=== PATIENT | female | born 1970 | race Caucasian/White ===

== ENCOUNTER 2017-02-28 21:01 | Emergency (ER) | payer OTHER ==
[2017-02-28 21:08] VITALS: BP 123/81
--- NOTE | 2017-02-28 22:20 | ED Physician Documentation ---
History of Present Illness - Stated complaint Stated Complaint: CAN'T SWALLOW/STIFF NECK - Chief complaint Chief Complaint: General - History obtained from History obtained from: Patient, Family - History of Present Illness Timing: Today Pain level max: 5 Pain level now: 5 Improved by: nothing Worsened by: swallowing, movement of neck - Additonal information Additional information: atraumatic neck pain, odynophagia x 1-2 days Review of Systems Constitutional: reports: Reviewed and negative Ears: denies: Ear pain Nose: reports: Reviewed and negative Throat: reports: Sore throat Skin: denies: Rash Musculoskeletal: reports: Neck pain PD PAST MEDICAL HISTORY - Past Medical History Past Medical History: Yes Endocrine/Autoimmune: HyPOthyroidism Psych: Depression, Anxiety, Bipolar disorder, Post traumatic stress disorder Musculoskeletal: Chronic back pain - Past Surgical History 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 - Present Medications Home Medications: Ambulatory Orders Medication Instructions Recorded Confirmed Bupropion HCl [Wellbutrin] 100 mg PO DAILY 07/30/14 08/30/16 Levothyroxine Sodium [Synthroid] 125 mcg PO DAILY 07/30/14 08/30/16 [place] Carbonate 600 mg PO DAILY 07/30/14 08/30/16 PARoxetine [Paxil] 10 mg PO DAILY 07/30/14 08/30/16 Zolpidem [Ambien] 10 mg PO HS #7 tablet 07/30/14 08/30/16 Cyclobenzaprine [Flexeril] 10 mg PO TID PRN #20 tablet 08/30/16 HYDROcod/ACETAM 5/325 [[place] 5/325] 1 - 2 ea PO Q6H PRN #15 tablet 08/30/16 Lamotrigine [Lamictal Xr] 1 tab PO DAILY 08/30/16 08/30/16 Dexamethasone [Decadron] 4 mg PO DAILY #5 tablet 10/03/16 Methocarbamol [Robaxin] 500 mg PO Q6H PRN #25 tablet 10/03/16 Naproxen 375 mg PO BID #20 tablet 10/03/16 Oxycodone HCl/Acetaminophen 1 each PO Q6H PRN #20 tablet 10/03/16 [Percocet 5-325 mg Tablet] Tramadol HCl 50 mg PO Q6H PRN #25 tablet 10/03/16 Zolpidem [Ambien] 10 mg PO HS PRN #7 tablet 10/03/16 - Allergies Allergies/Adverse Reactions: Allergies Allergy/AdvReac Type Severity Reaction Status Date / Time No Known Drug Allergies Allergy Verified 02/28/17 21:08 - Social History Does the pt smoke?: No Smoking Status: Never smoker Does the pt drink ETOH?: Yes Does the pt have substance abuse?: No - Immunizations Immunizations are current?: Yes - POLST Patient has POLST: No PD ED PE NORMAL - Vitals Vital signs reviewed: Yes - General General: Alert and oriented X 3, No acute distress, Well developed/nourished - HEENT HEENT: PERRL, EOMI, Moist mucous membranes, Pharynx benign (punctate exudate, solitary lesion of exudate) - Neck Neck: Supple, no meningeal sign, No bony TTP, No adenopathy, Thyroid normal - Derm Derm: Normal color, Warm and dry, No rash Results - Vitals Vitals: Oxygen O2 Source Room air - Labs Labs: Microbiology 02/28/17 22:45 Group A Strep Throat Culture - Final Throat Laboratory Tests 02/28/17 22:45 Group A Strep Rapid Negative PD MEDICAL DECISION MAKING - ED course Complexity details: reviewed results, re-evaluated patient, considered differential, d/w patient, d/w family Departure - Departure Disposition: 01 Home, Self Care Clinical Impression: Neck pain, Sore throat Condition: Good Instructions: ED Neck Pain No Trauma Follow-Up: [facility] [Provider Group] [facility] [Provider Group] Discharge Date/Time: 02/28/17 23:17
[2017-02-28 22:58] LABS: RAPID STREP SCREEN REAGENT QC YELLOW (YELLOW)
== END 2017-02-28 23:17 | disposition home or self-care (01) ==
LOC: ED 21:01
DX: J02.9 Acute pharyngitis, unspecified (principal); M54.2 Cervicalgia; E03.9 Hypothyroidism, unspecified
CPT/HCPCS: 87070; 87430; 99283

== ENCOUNTER 2017-09-15 20:54 | Emergency (ER) | payer OTHER ==
--- NOTE | 2017-09-15 21:25 | ED Physician Documentation ---
PD HPI LOWER EXT INJURY - Stated complaint Stated Complaint: R CALF PX/SWELLING - Chief complaint Chief Complaint: Ext Problem - History obtained from History obtained from: Patient - History of Present Illness PD HPI LOW EXT INJURY LOCATION: Right, Calf Type of injury: No: Fall, Twist Timing - onset: How many days ago (2) Timing - duration: Days (2) Timing - details: Gradual onset, Still present (noted onset of medial right calf pain and swelling without noted injury over past 2 days. Has been sitting at desk a lot for work, and also had plane flight from [place] couple weeks ago.) Worsened by: Palpating, Other (walking) Associated symptoms: Swelling (medial mid calf right leg). No: Weakness, Numbness Contributing factors: No: Anticoagulated, Prior ortho surgery Similar symptoms before: Has not had sx before Recently seen: Not recently seen Review of Systems Constitutional: denies: Fever, Chills Cardiac: denies: Chest pain / pressure, Palpitations Respiratory: reports: Dyspnea (mild today after reading about possible blood clots and can go to the lungs; did not have dyspnea earlier.). 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 - Present Medications Home Medications: Ambulatory Orders Medication Instructions Recorded Confirmed Bupropion HCl [Wellbutrin] 100 mg PO DAILY 07/30/14 08/03/17 Levothyroxine Sodium [Synthroid] 125 mcg PO DAILY 07/30/14 08/03/17 [place] Carbonate 600 mg PO DAILY 07/30/14 08/03/17 PARoxetine [Paxil] 10 mg PO DAILY 07/30/14 08/03/17 Zolpidem [Ambien] 10 mg PO HS #7 tablet 07/30/14 08/03/17 lamoTRIgine [Lamictal Xr] 1 tab PO DAILY 08/30/16 08/03/17 Calcium Carbonate [Tums (Calcium 1,000 mg PO DAILY 05/25/17 08/03/17 Carbonate 500mg)] Multivitamin [Multiple Vitamins] 1 tab PO DAILY 05/25/17 08/03/17 Dexamethasone [Decadron] 4 mg PO DAILY #5 tablet 09/15/17 - Allergies Allergies/Adverse Reactions: Allergies Allergy/AdvReac Type Severity Reaction Status Date / Time No Known Drug Allergies Allergy Verified 09/15/17 21:00 - Social History Does the pt smoke?: No Smoking Status: Never smoker Does the pt drink ETOH?: Yes Does the pt have substance abuse?: No - Immunizations Immunizations are current?: Yes - POLST Patient has POLST: No PD ED PE NORMAL - Vitals Vital signs reviewed: Yes - General General: Alert and oriented X 3, No acute distress, Well developed/nourished - Cardiac Cardiac: RRR, No murmur - Respiratory Respiratory: Clear bilaterally - Back Back: No CVA TTP, No spinal TTP - Derm Derm: Normal color, Other (psoriatic patches on legs, knees, behind ears, chest , neck without signs of infection, c/w nummular psoriasis. ) - Extremities Extremities: Other (right medial mid calf with some nonfocal swelling and tenderness. No redness aside from some psoriatic patches. Normal color and cap refill in ankle/toes. ) - Neuro Neuro: Alert and oriented X 3, No motor deficit, No sensory deficit, Normal speech Results - Vitals Vitals: Vital Signs - 24 hr 09/15/17 09/15/17 20:58 22:47 Temperature 36.3 C L 36.4 C L Heart Rate 72 67 Respiratory 16 14 Rate Blood Pressure 130/85 H 132/87 H O2 Saturation 100 98 Oxygen O2 Source Room air - Rads (name of study) duplex right leg Radiology: Prelim report reviewed (no DVT; incidental effusion/fluid lateral knee popliteal area (does not seem related to medial lower calf tenderness).) Departure - Departure Disposition: 01 Home, Self Care Clinical Impression: Right calf pain, Muscle strain Clinical Impression: (Ruled Out): DVT (deep venous thrombosis) Condition: Stable Record reviewed to determine appropriate education?: Yes Instructions: ED Strain Muscle Ext Follow-Up: [facility] [Primary Care Provider] - Prescriptions: Dexamethasone [Decadron] 4 mg PO DAILY #5 tablet Comments: No signs of DVT on ultrasound today. This is highly accurate for DVT, approaching 98%. That said, if you were to have increasing pain and swelling of the calf, the ultrasound can be repeated in a week or so to see if there is then evidence for one developing. For now, presume muscle strain/inflammation. Some activity with the leg (walking easily) is good. Elevate it often otherwise. Ibuprofen or Naproxen 2-3 times daily for 5-7 days. Recheck if not improving over the next few days to a week. The ultrasound showed a small cyst- like fluid pocket near the outside of the knee, so I think is unrelated and relatively common. For your psoriasis, you could use daily dexamethasone steroid for 3-5 days to see if that decreases it. This might help with the calf pain as well though when to be required for getting better. Discharge Date/Time: 09/15/17 22:47
--- NOTE | 2017-09-15 22:30 | Ultrasound Preliminary Report ---
Exam: US DUPLEX EXT VEINS RIGHT IMPRESSION: 1. No evidence for deep venous thrombosis. 2. There appears to be a right lateral knee joint effusion measuring 2.9 x 0.4 cm. [facility] SITE ID: [id number]
[2017-09-15] MEDS ORDERED: DEXAMETHASONE 10 MG/ML VIAL PO STA (22:32)
--- NOTE | 2017-09-15 22:33 | Ultrasound Report ---
EXAM: RIGHT LOWER EXTREMITY VENOUS ULTRASOUND EXAM DATE: 09/15/2017 10:26 PM. CLINICAL HISTORY: Right calf pain and swelling; recent plane flight. COMPARISON: None. TECHNIQUE: Real-time sonographic vascular imaging was performed by the rn practitioner through the lower extremity utilizing both color-flow and Doppler spectral analysis. Multiple industrial relations representative static kavya ges were saved for review. FINDINGS: Common Femoral Vein (CFV): Normal. CFV-GSV Junction: Normal. Profunda Femoral Vein (PFV): Normal. Femoral Vein (FV) Prox: Normal. Femoral Vein (FV) Mid: Normal. Femoral Vein (FV) Dist: Normal. Popliteal Vein: Normal. Posterior Tibial Veins: Normal. Peroneal Veins: Normal. Other: There appears to be a right lateral knee joint effusion measuring 2.9 x 0.4 cm. IMPRESSION: 1. No evidence for deep venous thrombosis. 2. There appears to be a right lateral knee joint effusion measuring 2.9 x 0.4 cm. [facility] Referring Provider Line: [phone] SITE ID: [id number]
[2017-09-15 22:47] VITALS: BP 132/87
== END 2017-09-15 22:47 | disposition home or self-care (01) ==
LOC: ED 20:54
DX: S86.911A Strain of unspecified muscle(s) and tendon(s) at lower leg level, right leg, initial encounter (principal); W18.30XA Fall on same level, unspecified, initial encounter; X50.9XXA Other and unspecified overexertion or strenuous movements or postures, initial encounter; E03.9 Hypothyroidism, unspecified
CPT/HCPCS: 99283

== ENCOUNTER 2020-11-30 10:42 | Outpatient (CLI) | payer OTHER ==
[2020-11-30 11:36] LABS: THYROID STIMULATING HORMONE 2.64 uIU/mL (0.34-5.60)
[2020-11-30 12:04] LABS: FOLLICLE STIMULATING HORMONE 10.27 mIU/mL
== END 2020-11-30 10:43 | disposition home or self-care (01) ==
LOC: LAB 10:42
PROVIDERS: ATTEND Obstetrics & Gynecology
DX: N95.9 Unspecified menopausal and perimenopausal disorder (principal); R53.83 Other fatigue
CPT/HCPCS: 82670; 83001; 84443

== ENCOUNTER 2022-12-06 08:00 | Outpatient (CLI) | payer OTHER | END 2022-12-06 23:59 | disposition home or self-care (01) | LOC: LAB 08:00 | PROVIDERS: ATTEND Physician Assistant | DX: J02.9 Acute pharyngitis, unspecified (principal) | CPT/HCPCS: 87070 ==

== ENCOUNTER 2023-03-03 12:00 | Outpatient (CLI) | payer OTHER ==
[2023-03-03 17:54] LABS: BASOPHILS # (AUTO) 0.1 10^3/uL (0.0-0.1); BASOPHILS % (AUTO) 0.7 %; EOSINOPHILS # (AUTO) 0.2 10^3/uL (0.0-0.7); EOSINOPHILS % (AUTO) 2.7 %; HCT - HEMATOCRIT 38.4 % (37.0-47.0); HGB - HEMOGLOBIN 12.4 g/dL (12.0-16.0); LYMPHOCYTES # (AUTO) 1.3 10^3/uL (1.5-3.5); LYMPHOCYTES % (AUTO) 17.2 %; MEAN CORPUSCULAR HEMOGLOBIN 29.5 pg (27.0-31.0); MEAN CORPUSCULAR HGB CONC 32.3 g/dL (32.0-36.0); MEAN CORPUSCULAR VOLUME 91.4 fL (81.0-99.0); MEAN PLATELET VOLUME 11.5 fL (7.9-10.8); MONOCYTES # (AUTO) 0.6 10^3/uL (0.0-1.0); MONOCYTES % (AUTO) 8.3 %; NEUTROPHILS # (AUTO) 5.4 10^3/uL (1.5-6.6); NEUTROPHILS % (AUTO) 70.7 %; PLT - PLATELET COUNT 293 10^3/uL (130-450); RED CELL DISTRIBUTION WIDTH 12.7 % (12.0-15.0); WHITE BLOOD COUNT 7.7 x10^3/uL (4.8-10.8)
[2023-03-03 18:29] LABS: ALBUMIN 3.7 g/dL (3.2-5.5); ALBUMIN/GLOBULIN RATIO 1.3 (1.0-2.2); BILIRUBIN,TOTAL 0.2 mg/dL (0.2-1.0); CALCIUM 8.9 mg/dL (8.5-10.3); CREATININE 0.6 mg/dL (0.4-1.0); POTASSIUM 4.3 mmol/L (3.5-5.0); TOTAL PROTEIN 6.5 g/dL (6.7-8.2)
[2023-03-03 18:30] LABS: FERRITIN 20.2 ng/mL (11.0-306.8)
[2023-03-03 18:52] LABS: FOLLICLE STIMULATING HORMONE 2.34 mIU/mL
[2023-03-03 18:53] LABS: LUTEINIZING HORMONE 1.77 mIU/mL
== END 2023-03-03 12:15 | disposition home or self-care (01) ==
LOC: LAB.N 12:00
PROVIDERS: ATTEND Registered Nurse
DX: H92.01 Otalgia, right ear (principal); N94.6 Dysmenorrhea, unspecified; R53.83 Other fatigue
CPT/HCPCS: 36415; 80053; 82670; 82728; 83001; 83002; 83540; 84466; 85025

== ENCOUNTER 2023-03-06 09:43 | Emergency (ER) | payer OTHER ==
--- OUTSIDE RECORDS SUMMARY | 2023-03-06 10:21 | EXTERNAL MEDICAL SUMMARY RPT | Continuity of Care Document ---
Author Name Unknown Address [address] [place] [address] Phone Organization [facility] Address [address] [place] [address] Phone Care Team Providers Care Meatcutter Name Role Phone JuvencioLulan Unavailable Unavailable Medications date description facility 2023-01-01 00:00 Paroxetine Hcl [facility] 2023-01-01 00:00 Lamotrigine [facility]23-02-23 00[facility] Social History date description facility 2023-01-01 00:00 Ex-smoker (finding) [facility] 2023-02-23 00:00 Ex-smoker (finding) [facility] Vital Signs date measurement value units 2023-02-23 00:00 BMI 27.4 kg/m2 2023-02-23 00:00 BP_diastolic 92 mmHg 2023-02-23 00:00 BP_systolic 140 mmHg 2023-02-23 00:00 heart_rate 63 /min 2023-02-23 00:00 height_metric 152.4 cm 2023-02-23 00:00 height_standard 60 in 2023-02-23 00:00 o2_saturation 98 % 2023-02-23 00:00 weight_metric 63.75 kg 2023-02-23 00:00 weight_standard 140.54 lb
[2023-03-06 10:27] LABS: HCG UR QUAL NEGATIVE
[2023-03-06 10:35] LABS: BASOPHILS # (AUTO) 0.1 10^3/uL (0.0-0.1); BASOPHILS % (AUTO) 0.5 %; EOSINOPHILS # (AUTO) 0.2 10^3/uL (0.0-0.7); EOSINOPHILS % (AUTO) 2.1 %; HCT - HEMATOCRIT 37.6 % (37.0-47.0); HGB - HEMOGLOBIN 12.1 g/dL (12.0-16.0); LYMPHOCYTES # (AUTO) 1.2 10^3/uL (1.5-3.5); LYMPHOCYTES % (AUTO) 12.5 %; MEAN CORPUSCULAR HEMOGLOBIN 29.2 pg (27.0-31.0); MEAN CORPUSCULAR HGB CONC 32.2 g/dL (32.0-36.0); MEAN CORPUSCULAR VOLUME 90.6 fL (81.0-99.0); MEAN PLATELET VOLUME 10.6 fL (7.9-10.8); MONOCYTES # (AUTO) 0.7 10^3/uL (0.0-1.0); MONOCYTES % (AUTO) 7.5 %; NEUTROPHILS # (AUTO) 7.3 10^3/uL (1.5-6.6); NEUTROPHILS % (AUTO) 77.1 %; PLT - PLATELET COUNT 287 10^3/uL (130-450); RED BLOOD COUNT 4.15 10^6/uL (4.20-5.40); RED CELL DISTRIBUTION WIDTH 12.8 % (12.0-15.0); WHITE BLOOD COUNT 9.4 x10^3/uL (4.8-10.8)
[2023-03-06 10:49] LABS: ALBUMIN 3.6 g/dL (3.2-5.5); ALBUMIN/GLOBULIN RATIO 1.2 (1.0-2.2); BILIRUBIN,TOTAL 0.4 mg/dL (0.2-1.0); CALCIUM 8.3 mg/dL (8.5-10.3); CREATININE 0.6 mg/dL (0.4-1.0); TOTAL PROTEIN 6.7 g/dL (6.7-8.2)
--- NOTE | 2023-03-06 10:51 | ED Physician Documentation ---
PD HPI FEMALE - Stated complaint Stated Complaint: FEMALE /WEAKNESS - Chief complaint Chief Complaint: Abd Pain - History obtained from History obtained from: Patient - History of Present Illness Timing - onset: How many months ago (1) Timing - duration: Months (1) Timing - details: Gradual onset (onset was feeling like usually menses that has had regularly still. However the bleeding persisted for few weeks and then started to get ehavier the past week. States a pad every 2-3 hours the past several days or more. Feeling weak and lightheaded. History of anemia.), Still present Associated symptoms: Pelvic pain (cramping), Vaginal bleeding. No: Fever, Abdominal pain, Vaginal discharge, Genital sore/lesion, Dysuria Contributing factors: Not sexually active Similar symptoms before: Has not had sx before Recently seen: Not recently seen Review of Systems Constitutional: denies: Fever, Chills : reports: Vaginal bleeding. 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 Medications Home Medications: Ambulatory Orders Medication Instructions Recorded Confirmed Bupropion HCl [Wellbutrin] 50 mg PO DAILY 07/30/14 01/05/23 Levothyroxine Sodium [Synthroid] 125 mcg PO DAILY 07/30/14 01/05/23 [place] Carbonate 450 mg PO DAILY 07/30/14 01/05/23 PARoxetine [Paxil] 5 mg PO DAILY 07/30/14 01/05/23 lamoTRIgine [Lamictal Xr] 50 mg PO DAILY 08/30/16 01/05/23 Calcium Carbonate [Tums (Calcium 500 mg PO DAILY 05/25/17 01/05/23 Carbonate 500mg)] Multivitamin [Multiple Vitamins] 1 tab PO DAILY 05/25/17 01/05/23 Zolpidem [Ambien] 5 mg PO HS 02/25/21 01/05/23 Medroxyprogesterone Acetate 5 mg PO DAILY #10 tablet 03/06/23 [Provera] Tranexamic Acid 1,300 mg PO TID 5 Days #30 tablet 03/06/23 - Allergies Allergies/Adverse Reactions: Allergies Allergy/AdvReac Type Severity Reaction Status Date / Time No Known Drug Allergies Allergy Verified 03/06/23 10:05 - Social History Does the pt smoke?: No Smoking Status: Never smoker Does the pt drink ETOH?: Yes Does the pt have substance abuse?: No - Immunizations Immunizations are current?: Yes - POLST Patient has POLST: No PD ED PE NORMAL - Vitals Vital signs reviewed: Yes - General General: Alert and oriented X 3, No acute distress, Well developed/nourished - Neck Neck: Supple, no meningeal sign, No adenopathy, Thyroid normal - Cardiac Cardiac: RRR, No murmur - Respiratory Respiratory: Clear bilaterally - Abdomen Abdomen: Normal bowel sounds, Soft, Non tender, Non distended - Female Female : Deferred - Rectal Rectal: Deferred - Back Back: No CVA TTP - Derm Derm: Normal color - Extremities Extremities: Normal ROM s pain, No edema, No calf tenderness / cord Results - Vitals Vitals: Vital Signs - 24 hr 03/06/23 03/06/23 10:01 12:25 Temperature 36.9 C 36.6 C Heart Rate 73 117 H Respiratory 16 18 Rate Blood Pressure 137/84 H 131/81 H O2 Saturation 98 100 Oxygen O2 Source Room air - Labs Labs: Laboratory Tests 03/06/23 03/06/23 03/06/23 10:07 10:30 10:30 WBC 9.4 RBC 4.15 L Hgb 12.1 Hct 37.6 MCV 90.6 MCH 29.2 MCHC 32.2 RDW 12.8 Plt Count 287 MPV 10.6 Neut # (Auto) 7.3 H Lymph # (Auto) 1.2 L [place] # (Auto) 0.7 Eos # (Auto) 0.2 Baso # (Auto) 0.1 Absolute Nucleated RBC 0.00 Nucleated RBC % 0.0 Sodium 138 Potassium 4.0 Chloride 104 Carbon Dioxide 25 Anion Gap 9.0 BUN 9 Creatinine 0.6 Estimated GFR (MDRD) 105 Glucose 93 Calcium 8.3 L Total Bilirubin 0.4 AST 17 ALT 13 Alkaline Phosphatase 61 Total Protein 6.7 Albumin 3.6 Globulin 3.1 Albumin/Globulin Ratio 1.2 Lipase 48 Urine HCG, Qual NEGATIVE PD Medical Decision Making - ED course Complexity details: reviewed results (3 cm cyst right ovary. NO free fluid. Endometrial mild thickening uniformly. No masses. ), considered differential (DUB for a month. Can check CBC since feeling weak/lightheaded, as well as chemistries. U/S to eval for structural causes of bleeding. 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 ) Reviewed Lab Results: she is not anemic. U/S showing a cyst but no other masses. Departure - Departure Disposition: 01 Home, Self Care Clinical Impression: DUB (dysfunctional uterine bleeding) Condition: Stable Record reviewed to determine appropriate education?: Yes Instructions: ED Bleed Irregular Vaginal Follow-Up: Sotero Smiley MD [Provider Admit Priv/Credential] - Prescriptions: Medroxyprogesterone Acetate [Provera] 5 mg PO DAILY #10 tablet Tranexamic Acid 1,300 mg PO TID 5 Days #30 tablet Comments: You do have a 3 cm ovarian cyst on one of the ovaries. There is no signs of bleeding nor rupture. This might be large enough to cause some cramping pains but not commonly at this size. More likely her cramping and pain is coming from the endometrial buildup (persistent menses). Your ultrasound did not show any signs of fibroids/tumors/masses otherwise. I talked with the on-call DATA ASSISTANT who directed prescription therapy of progesterone/Provera 5 mg daily for the next 10 days. You can also add tranexamic acid to help reduce the degree of bleeding. This is 2 tablets 3 times daily. The suggestion is taken that for a day or 2 to help reduce the bleeding while the Provera is taken effect and then to take it as needed. Tylenol every 4-6 hours if needed for pains. Follow-up with your customer care assistant next week, call for an appointment. Return if worsening symptoms. I sent your prescription to the [facility] pharmacy. Discharge Date/Time: 03/06/23 13:25
[2023-03-06 12:29] VITALS: BP 131/81
--- NOTE | 2023-03-06 13:04 | Ultrasound Report ---
PROCEDURE: Pelvic w/Transvag+Doppler Comp INDICATIONS: vaginal bleeding/cramps 1 month TECHNIQUE: Real-time scanning was performed of the pelvic organs, with image documentation. Additional endovagi nal scanning was necessary due to incomplete visualization of the adnexal and endometrial structures by transabdominal scanning. Doppler interrogation was performed of the ovaries bilaterally. COMPARISON: None. FINDINGS: Uterus: Uterus is anteverted and normal in size at 8.9 x 5.3 x 6.9 cm. The myometrium is homogeneou s. The endometrium measures 11 mm in combined thickness. Nabothian cyst present. Ovaries: The right ovary measures 3.7 x 3.4 x 3.3 cm, with a calculated ovarian volume of 22 cc. Th e left ovary measures 2.7 x 1.6 x 2.2 cm, with a calculated ovarian volume of 5 cc. Appropriate bloo d flow to the ovaries with Doppler interrogation. Less than 12 follicles can be seen in each ovary. No adnexal masses are seen. Anechoic cystic lesion with without internal septations and without a t hickened wall injuring 3.3 cm; O-RADS 2, requiring no further follow-up. Other: No pathologic free abdominal or pelvic fluid. IMPRESSION: Endometrium measures 11 mm, within normal limits. Reviewed by: Miguel Ashford on 03/06/2023 1:02 PM PDT Approved by: Miguel Ashford on 03/06/2023 1:02 PM PDT Station ID: [id number]
== END 2023-03-06 13:25 | disposition home or self-care (01) ==
LOC: ED 09:43
DX: N93.8 Other specified abnormal uterine and vaginal bleeding (principal); E03.9 Hypothyroidism, unspecified; Z79.899 Other long term (current) drug therapy
CPT/HCPCS: 36415; 80053; 81025; 83690; 85025; 93975; 99284

== ENCOUNTER 2023-03-26 08:00 | Outpatient (CLI) | payer OTHER ==
[2023-03-26 18:12] LABS: BASOPHILS # (AUTO) 0.1 10^3/uL (0.0-0.1); BASOPHILS % (AUTO) 0.7 %; EOSINOPHILS # (AUTO) 0.2 10^3/uL (0.0-0.7); EOSINOPHILS % (AUTO) 2.3 %; HCT - HEMATOCRIT 35.1 % (37.0-47.0); LYMPHOCYTES # (AUTO) 1.4 10^3/uL (1.5-3.5); MEAN CORPUSCULAR HEMOGLOBIN 29.1 pg (27.0-31.0); MEAN CORPUSCULAR HGB CONC 31.3 g/dL (32.0-36.0); MEAN CORPUSCULAR VOLUME 92.9 fL (81.0-99.0); MEAN PLATELET VOLUME 11.4 fL (7.9-10.8); MONOCYTES # (AUTO) 0.6 10^3/uL (0.0-1.0); MONOCYTES % (AUTO) 6.3 %; NEUTROPHILS # (AUTO) 6.7 10^3/uL (1.5-6.6); NEUTROPHILS % (AUTO) 74.4 %; PLT - PLATELET COUNT 392 10^3/uL (130-450); RED BLOOD COUNT 3.78 10^6/uL (4.20-5.40); RED CELL DISTRIBUTION WIDTH 14.2 % (12.0-15.0)
[2023-03-26 18:40] LABS: ALBUMIN 3.6 g/dL (3.2-5.5); ALBUMIN/GLOBULIN RATIO 1.2 (1.0-2.2); BILIRUBIN,TOTAL 0.5 mg/dL (0.2-1.0); CALCIUM 8.7 mg/dL (8.5-10.3); CREATININE 0.6 mg/dL (0.4-1.0); TOTAL PROTEIN 6.5 g/dL (6.7-8.2)
[2023-03-26 18:49] LABS: THYROID STIMULATING HORMONE 1.02 uIU/mL (0.34-5.60)
[2023-03-26 18:56] LABS: FERRITIN 47.2 ng/mL (11.0-306.8)
[2023-03-26 19:00] LABS: FOLATE 10.08 ng/mL (5.90 - >24.8)
[2023-03-26 22:03] LABS: ESTIMATED AVERAGE GLUCOSE 74 mg/dL (70-100); HEMOGLOBIN A1c% 4.2 % (4.27-6.07)
[2023-03-28 08:09] LABS: EBV AB VCA IGG >600.0 U/mL (0.0-17.9); EBV AB VCA IGM >160.0 U/mL (0.0-35.9)
== END 2023-03-26 23:59 | disposition home or self-care (01) ==
LOC: LAB.N 08:00
PROVIDERS: ATTEND Registered Nurse
DX: N93.9 Abnormal uterine and vaginal bleeding, unspecified (principal); R53.83 Other fatigue
CPT/HCPCS: 36415; 80053; 82607; 82728; 82746; 83036; 83540; 84443; 84466; 85025; 86664; 86665

== ENCOUNTER 2023-08-17 12:57 | Emergency (ER) | payer OTHER ==
[2023-08-17 13:13] VITALS: O2SAT 100
[2023-08-17 15:44] VITALS: BP 130/76
--- NOTE | 2023-08-17 15:50 | ED Physician Documentation ---
PD HPI SKIN - Stated complaint Stated Complaint: INSCIONS RED POST SURGERY - Chief complaint Chief Complaint: General - History obtained from History obtained from: Patient - Additional information Additional information: 53-year-old female presents for evaluation of possible breast infection. Patient underwent bilateral breast reduction 3 days prior at [facility]. She has been recovering normally at home, however as the day progressed she noticed burning and pain in her bilateral axillary regions. She tried to call her plastic surgeon's office, but ended up coming to the emergency department. She is concerned she may have an infection and needs antibiotics.Denies fevers. Review of Systems Constitutional: denies: Fever, Chills Skin: reports: Other (Redness). 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 Medications Home Medications: Ambulatory Orders Medication Instructions Recorded Confirmed Bupropion HCl [Wellbutrin] 50 mg PO DAILY 07/30/14 05/11/23 Levothyroxine Sodium [Synthroid] 125 mcg PO DAILY 07/30/14 05/11/23 [place] Carbonate 450 mg PO DAILY 07/30/14 05/11/23 PARoxetine [Paxil] 5 mg PO DAILY 07/30/14 05/11/23 lamoTRIgine [Lamictal Xr] 50 mg PO DAILY 08/30/16 05/11/23 Calcium Carbonate [Tums (Calcium 500 mg PO DAILY 05/25/17 05/11/23 Carbonate 500mg)] Multivitamin [Multiple Vitamins] 1 tab PO DAILY 05/25/17 05/11/23 Zolpidem [Ambien] 5 mg PO HS 02/25/21 05/11/23 Doxycycline Hyclate 100 mg PO BID #14 cap 08/17/23 - Allergies Allergies/Adverse Reactions: Allergies Allergy/AdvReac Type Severity Reaction Status Date / Time No Known Drug Allergies Allergy Verified 03/06/23 10:05 - Social History Does the pt smoke?: No Smoking Status: Never smoker Does the pt drink ETOH?: Yes Does the pt have substance abuse?: No - Immunizations Immunizations are current?: Yes - POLST Patient has POLST: No PD ED PE NORMAL - Vitals Vital signs reviewed: Yes - General General: Alert and oriented X 3, No acute distress, Well developed/nourished - HEENT HEENT: Atraumatic - Cardiac Cardiac: RRR, Strong equal pulses - Respiratory Respiratory: No respiratory distress - Abdomen Abdomen: Soft, Non tender - Derm Derm: Warm and dry, Other (healing bruising chest wall. Wounds intact. Mild erythema bilateral axillary regions) - Extremities Extremities: No deformity, No tenderness to palpate, Normal ROM s pain - Neuro Neuro: Alert and oriented X 3, spool cleaner 2-12 intact, No motor deficit, Normal speech Results - Vitals Vitals: Vital Signs - 24 hr 08/17/23 08/17/23 13:00 15:06 Temperature 36.8 C 36.8 C Heart Rate 78 76 Respiratory 20 18 Rate Blood Pressure 132/77 H 130/76 O2 Saturation 100 100 Oxygen O2 Source Room air PD Medical Decision Making - ED course Complexity details: reviewed results, re-evaluated patient, considered differential, d/w patient ED course: Patient presenting out of concern that her surgical site may be infected. I discussed her presentation with her plastic surgeon Dr. Doshi of [facility], who stated that since the pain was bilateral in nature it is highly unlikely to be infected. This seems consistent with normal postoperative swelling. However, he states that if the patient is very concerned of infection it would not hurt the patient to be placed on a course of antibiotics. She has scheduled follow-up later this week in the [facility] clinic for her postoperative check. Antibiotics for cellulitis sent to pharmacy of choice. Departure - Departure Disposition: 01 Home, Self Care Condition: Stable Instructions: Incision Care Chest Prescriptions: Doxycycline Hyclate 100 mg PO BID #14 cap Forms: PCP List Discharge Date/Time: 08/17/23 16:29
== END 2023-08-17 16:29 | disposition home or self-care (01) ==
LOC: ED 12:57
DX: L03.319 Cellulitis of trunk, unspecified (principal); Z98.890 Other specified postprocedural states
CPT/HCPCS: 99282; 99284

== ENCOUNTER 2023-10-20 08:15 | Outpatient (CLI) | payer OTHER | END 2023-10-20 08:30 | disposition home or self-care (01) | LOC: LAB.N 08:15 | PROVIDERS: ATTEND Nurse Practitioner | DX: N39.0 Urinary tract infection, site not specified (principal) | CPT/HCPCS: 87077; 87086; 87181 ==

== ENCOUNTER 2023-11-26 19:53 | Emergency (ER) | payer OTHER ==
[2023-11-26 20:13] VITALS: BP 144/75
[2023-11-26] MEDS: oxyCODONE 5 MG TABLET PO STA (21:40)
[2023-11-26] MEDS: ACETAMINOPHEN 325 MG TABLET PO STA (21:41)
--- NOTE | 2023-11-26 22:00 | XRAY Report ---
PROCEDURE: Shoulder 2+V RT INDICATIONS: right shoulder pain TECHNIQUE: 3 views of the shoulder were acquired. COMPARISON: None. FINDINGS: Bones: No fractures or dislocations. No suspicious bony lesions. Visualized ribs appear intact. Degenerative changes of the acromioclavicular joint. Soft tissues: No suspicious soft tissue calcifications. The visualized lungs are within normal limi ts. Soft tissue calcification of the superolateral right humeral head compatible with sequela of ch ronic rotator cuff calcific tendinopathy. IMPRESSION: No acute bony abnormality. Findings compatible with chronic calcific rotator cuff tendinopathy. Acromioclavicular osteoarthrosis. If there is continued clinical concern for pathology or occult fracture, consider follow-up imaging w ith repeat radiographs in 10-14 days and possible advanced imaging (CT, MRI, bone scan) if symptoms p ersist. Reviewed by: Bran Noriega MD on 11/26/2023 9:59 PM PST Approved by: Bran Noriega MD on 11/26/2023 9:59 PM PST Station ID: [id number]
--- NOTE | 2023-11-26 22:07 | ED Physician Documentation ---
History of Present Illness - Stated complaint Stated Complaint: RT SHOULDER INJ - Chief complaint Chief Complaint: Ext Problem - Additonal information Additional information: 53-year-old female no history of shoulder injuries Or other significant past medical history presents emergency department for severe right shoulder pain. About 3 days ago patient was reaching behind her and felt a sudden sharp pain to the anterior shoulder region. Since then the pain has increased in severity to the point where she is not able to tolerate it. She has a shoulder sling on she was seen at walk-in clinic who said that they could not do any imaging or x-ray because they thought it was just related to tendon pain. She said that she is afraid to take Tylenol ibuprofen at home because of acid reflux and says she has not taken anything and has not applied any ice to her shoulder. PD PAST MEDICAL HISTORY - Past Medical History Past Medical History: Yes Cardiovascular: None Respiratory: None Endocrine/Autoimmune: HyPOthyroidism GI: None : None HEENT: None Psych: Depression, Anxiety, Bipolar disorder, Post traumatic stress disorder Musculoskeletal: None, Chronic back pain Derm: Psoriasis - Past Surgical History Past Surgical History: Yes /DIRECT[employer] RELATIONS: section - Present Medications Home Medications: Ambulatory Orders Medication Instructions Recorded Confirmed Bupropion HCl [Wellbutrin] 50 mg PO DAILY 07/30/14 11/13/23 Levothyroxine Sodium [Synthroid] 125 mcg PO DAILY 07/30/14 11/13/23 Rector Carbonate 450 mg PO DAILY 07/30/14 11/13/23 PARoxetine [Paxil] 5 mg PO DAILY 07/30/14 11/13/23 lamoTRIgine [Lamictal Xr] 50 mg PO DAILY 08/30/16 11/13/23 Calcium Carbonate [Tums (Calcium 500 mg PO DAILY 05/25/17 11/13/23 Carbonate 500mg)] Multivitamin [Multiple Vitamins] 1 tab PO DAILY 05/25/17 11/13/23 Zolpidem [Ambien] 5 mg PO HS 02/25/21 11/13/23 Oxycodone HCl/Acetaminophen 1 each PO Q6HR PRN #12 tablet 11/26/23 [Percocet 5-325 mg Tablet] - Allergies Allergies/Adverse Reactions: Allergies Allergy/AdvReac Type Severity Reaction Status Date / Time No Known Drug Allergies Allergy Verified 11/26/23 20:10 - Social History Does the pt smoke?: No Smoking Status: Never smoker Does the pt drink ETOH?: Yes Does the pt have substance abuse?: No - Immunizations Immunizations are current?: Yes - POLST Patient has POLST: No PD ED PE NORMAL - Vitals Vital signs reviewed: Yes - General General: Alert and oriented X 3, Well developed/nourished, Other (Tearful and appears to be in acute distress.) - HEENT HEENT: Atraumatic - Cardiac Cardiac: RRR, No murmur, No gallop, Strong equal pulses - Respiratory Respiratory: No respiratory distress, Clear bilaterally - Derm Derm: Normal color, Warm and dry, No rash - Extremities Extremities: Other (Tenderness with palpation to the anterior portion of patient's right shoulder. Limited range of motion with abduction. Normal skin.) - Psych Psych: Normal mood, Normal affect Results - Vitals Vitals: Vital Signs - 24 hr 11/26/23 11/26/23 11/26/23 20:04 20:10 22:33 Temperature 37.2 C Heart Rate 76 78 Respiratory 17 17 17 Rate Blood Pressure 144/75 H O2 Saturation 100 97 Oxygen O2 Source Room air - Rads (name of study) right shoulder xray Relevant Findings:: Final report received, EMP independent interpretation of test, Other (No acute bony abnormalities no fractures or dislocation. Acromioclavicular osteoarthritis and rotator cuff tendinopathy) PD Medical Decision Making - ED course ED course: 53-year-old female presents emergency department for right shoulder pain. X- rays complete does not reveal any acute fractures or abnormalities. It does reveal that there is acromioclavicular osteoarthrosis as well as chronic calcific rotator cuff tendinopathy. Patient was told to at the very least take Tylenol at home to help with her pain and follow-up with Ortho outpatient. She is told to continue to do some gentle range of motion exercises to her right shoulder to prevent from freezing. I am prescribing a short course of short-acting opioid pain medication for this patient. I have reviewed the patients [employer] and no concerning findings were noted. I have discussed that the opioids are for short term therapy only, and will not be refilled from the ED. Departure - Departure Disposition: 01 Home, Self Care Clinical Impression: Osteoarthritis of acromioclavicular joint Tendinopathy of rotator cuff Qualifiers: Laterality: right Qualified Code(s): M67.911 - Unspecified disorder of synovium and tendon, right shoulder Instructions: Shoulder Flexion, Shoulder Abduction Follow-Up: Alejandro Faria MD [Provider Admit Priv/Credential] - Prescriptions: Oxycodone HCl/Acetaminophen [Percocet 5-325 mg Tablet] 1 each PO Q6HR PRN #12 tablet PRN Reason: Pain >8 Comments: Thank you for trusting us with your care. We have completed an x-ray, see the results below it reveals that you have rotator cuff tendinopathy as well as Acromioclavicula osteoarthritis. Continue to wear your sling for comfort but make sure that you are taking off periodically and doing some gentle range of motion exercises of your shoulder otherwise that will get frozen. Make sure that you are taking Tylenol and ibuprofen for pain and discomfort if that does not work then take the Percocet. I am prescribing a short course of short-acting opioid pain medication for this patient. I have reviewed the patients [employer] and no concerning findings were noted. I have discussed that the opioids are for short term therapy only, and will not be refilled from the ED. I have also sent a referral to orthopedic surgeon Dr. Faria for further evaluation of your right shoulder pain. Make sure that you are consistently icing it throughout the day 20 minutes on 1 hour off. IMPRESSION: No acute bony abnormality. Findings compatible with chronic calcific rotator cuff tendinopathy. Acromioclavicular osteoarthrosis. Forms: PCP List Discharge Date/Time: 11/26/23 22:34
[2023-11-26] MEDS: oxyCODONE/ACET 5/325 Prepack 4 PO STA (22:22)
[2023-11-26 22:38] VITALS: O2SAT 97
== END 2023-11-26 22:34 | disposition home or self-care (01) ==
LOC: ED 19:53
DX: M19.011 Primary osteoarthritis, right shoulder (principal); M67.911 Unspecified disorder of synovium and tendon, right shoulder; E03.9 Hypothyroidism, unspecified; Z79.899 Other long term (current) drug therapy
CPT/HCPCS: 73030; 99283; 99284; A9270

== ENCOUNTER 2023-12-10 10:00 | Outpatient (CLI) | payer OTHER ==
--- NOTE | 2023-12-10 17:13 | XRAY Report ---
PROCEDURE: Shoulder 3 View RT INDICATIONS: RIGHT SHOULDER PAIN TECHNIQUE: 4 views of the shoulder were acquired. COMPARISON: 11/26/2023 FINDINGS: Bones: No fractures or dislocations. Degenerative changes of the clavicular joint. No suspicious bon y lesions. Visualized ribs appear intact. Soft tissues: No suspicious soft tissue calcifications. The visualized lungs are within normal limi ts. Calcific rotator cuff tendinitis. IMPRESSION: No acute bony abnormality. Degenerative changes of the acromioclavicular joint. Chronic calcific rota tor cuff tendinitis. Overall, not significantly changed compared to prior. Reviewed by: Frankie Peña MD on 12/10/2023 5:12 PM PST Approved by: Frankie Peña MD on 12/10/2023 5:12 PM PST Station ID: [id number]
== END 2023-12-10 23:59 | disposition home or self-care (01) ==
LOC: DI.WOS 10:00
PROVIDERS: ATTEND Physician Assistant Surgical
DX: M19.011 Primary osteoarthritis, right shoulder (principal); M75.31 Calcific tendinitis of right shoulder